=== PATIENT | female | born 1990 | race Caucasian/White ===

== ENCOUNTER 2021-10-27 16:04 | Emergency (ER) | payer SELFPAY ==
--- NOTE | 2021-10-27 | ECG_ITS ---
Test Reason : left sided numbness Blood Pressure : / mmHG Vent. Rate : 118 BPM Atrial Rate : 118 BPM P-R Int : 134 ms QRS Dur : 096 ms QT Int : 338 ms P-R-T Axes : 050 017 064 degrees QTc Int : 473 ms Sinus tachycardia Cannot rule out Inferior infarct , age undetermined Cannot rule out Anterior infarct , age undetermined Abnormal ECG No previous ECGs available Referred By: Cristy Rosado Electronically Signed By:BATOOL MYERS MD
--- NOTE | ~2021-10-27 | XR_ITS ---
EXAMINATION: XR CHEST CLINICAL INFORMATION: Chest pain. COMPARISON: None TECHNIQUE: Frontal view of the chest was obtained. FINDINGS: Support devices: Left-sided central venous port with the tip terminating in the superior vena cava. No significant abnormality is noted involving the heart, lungs, mediastinum, bony thorax or soft tissues. XR/XR chest 1V IMPRESSION: No acute cardiopulmonary process.
--- NOTE | ~2021-10-27 | CT_ITS ---
EXAMINATION: CT HEAD WITHOUT CONTRAST CLINICAL INFORMATION: Prior CVAs, sickle cell, left-sided weakness. COMPARISON: None TECHNIQUE: Contiguous axial imaging was performed from the skull base to vertex without intravenous administration of contrast. Coronal and sagittal reformatted images were obtained. This CT examination was performed using dose optimization techniques as appropriate, variously including the following: *Automated exposure control *Adjustment of mA and/or kV according to patient size (this includes techniques or standardized protocols for targeted exams where dose is matched to indication/reason for exam; i.e. extremities or head) *Use of iterative reconstruction technique DLP: 764 mGy-cm FINDINGS: The cortical sulci are normal. The lateral ventricles are symmetrical. The third and fourth ventricles are in their normal midline position. The basilar and prepontine cisterns are unremarkable. Incidental empty sella with mild enlargement of the sella turcica. There is no acute intra or extracerebral abnormality. There is no mass effect or midline shift. Sections through the bony calvarium are unremarkable. The paranasal sinuses are clear. Hypoaeration of the mastoid air cells bilaterally without other significant abnormality. The bony orbits and orbital contents are unremarkable. CT/CT head/brain wo con IMPRESSION: No acute intracranial pathology.
--- NOTE | ~2021-10-27 | NM_ITS ---
EXAMINATION: NM LUNG IMAGE PERFUSION CLINICAL INFORMATION: Chest pain. COMPARISON: Chest x-ray earlier today TECHNIQUE: Multiple oblique gamma camera images were obtained after the injection of 4 mCi of technetium 99m MAA. Ventilatory images were not performed. FINDINGS: There is mild heterogeneity seen more so in the dependent aspect of both right and left lungs but no discrete persistent segmental or subsegmental defect. Chest x-ray from ceiling demonstrated mild hypoexpansion and a left-sided chest port but no focal airspace disease appreciated. NM/NM pul perfusion IMPRESSION: Mild heterogeneity without associated segmental or subsegmental defect. This likely represents a low probability for pulmonary embolism.
[2021-10-27 16:12] VITALS: BP 134/84; PULSE 118; RESP 20; TEMP 36.4; O2SAT 100; BMI 44.3
--- NOTE | 2021-10-27 17:33 | PC.NURSE ---
PT REFUSING CT SCAN. SHE STATES SHE WOULD LIKE A CT W/CONTRAST. PT WAS EDUCATED ON STROKE R/O IMAGING, SHE THEN REFUSED TO CONTINUE CONVERSATION WITH THIS RN REQUESTING TO SPEAK WITH THE PROVIDER. PROVIDER IS AWARE OF DELAY.
--- NOTE | 2021-10-27 17:34 | ED_ITS ---
HPI - Weakness General Chief complaint: Weakness Stated complaint: Left sided numbness, sickle cell crisis Time Seen by Provider: 10/27/21 16:36 Source: patient Mode of arrival: ambulatory History of Present Illness HPI Narrative: 31-year-old female with a past medical history of AFib, DVT, factor 5 Leiden, HTN, [place], sickle cell anemia, CVA, reportedly on Coumadin, presenting to the ED complaining of a syncopal episode round 430. States had CP prior to syncope with + LOC and head injujry. Also admits woke up with left arm and leg weakness. Reports has been in sickle cell crisis for the past few days with joint pain, and nausea/vomiting with inability to tolerate p.o. x 6-7 days, unable to take any of her medication for that time. Denies fever, cough, recent illness, abdominal pain, dysuria Reports seeks her care in [place], is visiting MD Complaint: focal weakness, numbness and tingling Onset (ago): hour(s) Duration: constant Related Data Home Medications Medication Instructions Recorded Confirmed cyclobenzaprine 10 mg tablet 10 mg PO TID PRN 10/27/21 10/27/21 diazepam 5 mg tablet 5 mg PO QID PRN 10/27/21 10/27/21 diphenhydramine HCl 50 mg capsule 50 mg PO QID PRN 10/27/21 10/27/21 gabapentin 800 mg tablet 800 mg PO TID 10/27/21 10/27/21 hydromorphone 4 mg tablet 4 mg PO Q4H PRN 10/27/21 10/27/21 hydroxyurea 500 mg capsule 500 mg PO DAILY 10/27/21 10/27/21 lisinopril 10 mg tablet 10 mg PO DAILY 10/27/21 10/27/21 melatonin 10 mg tablet 10 mg PO BEDTIME PRN 10/27/21 10/27/21 metoprolol tartrate 25 mg tablet 25 mg PO DAILY 10/27/21 10/27/21 olanzapine 20 mg tablet (Zyprexa) 20 mg PO DAILY 10/27/21 10/27/21 promethazine 50 mg tablet 50 mg PO Q6H PRN 10/27/21 10/27/21 quetiapine 100 mg tablet (Seroquel) 100 mg PO TID 10/27/21 10/27/21 trazodone 100 mg tablet 200 mg PO BEDTIME 10/27/21 10/27/21 warfarin 7.5 mg tablet 7.5 mg PO DAILY 10/27/21 10/27/21 Allergies Allergy/AdvReac Type Severity Reaction Status Date / Time dicyclomine [From Bentyl] Allergy Hives Verified 10/27/21 16:18 haloperidol [From Haldol] Allergy Anaphylaxis Verified 10/27/21 16:18 Iodinated Contrast Media Allergy Hives Verified 10/27/21 16:18 [IV Contrast Dye] ketorolac [From Toradol] Allergy Hives Verified 10/27/21 16:18 metoclopramide [From Reglan] Allergy Hives Verified 10/27/21 16:18 ondansetron [From Zofran] Allergy Hives Verified 10/27/21 16:18 pantoprazole [From Protonix] Allergy Hives Verified 10/27/21 16:18 Review of Systems Review of Systems: Constitutional: No Fever, No Chills, No Night Sweats, No Fatigue, No Malaise ENT/Mouth: No Ear Pain, No Nasal Congestion, No sore throat, No Rhinorrhea, No Swallowing Difficulty Eyes: No Eye Pain, No Swelling, No Redness, No Vision Changes Cardiovascular: + Chest Pain, No SOB, No Edema, No Palpitations Respiratory: No Cough, No Sputum, No Dyspnea Gastrointestinal: + Nausea, + Vomiting, No Diarrhea, No Constipation, No Abdominal pain Genitourinary: No Dysuria, No Urinary Frequency, No Hematuria, No Flank Pain, No Urinary Flow Changes Musculoskeletal: No joint pain, No Myalgias, No Joint Swelling Skin: No Skin Lesions, No rash Neuro: + Weakness, + Numbness, + Paresthesias, + Loss of Consciousness, +syncope, No Dizziness, No Headache Yes all other systems are reviewed and are negative [facility] Past Medical History Attestation statement: The following information was validated with the patient. Medical History A-fib DVT (deep venous thrombosis) Factor 5 Leiden mutation, heterozygous HTN (hypertension) [place] (myocardial infarction) Pancreatic cancer Seizures Sickle cell anemia Stroke Social History Social History Advance Directives: No Advance Directives Information Provided: No Physical Exam Vital Signs: Vital Signs: Last Vital Signs Temp 97.5 F 10/27/21 16:12 Pulse 118 H 10/27/21 16:12 Resp 20 10/27/21 16:12 BP 134/84 10/27/21 16:12 Pulse Ox 100 10/27/21 16:12 BMI result Body Mass Index 44.3 Const: General: cooperative and no acute distress Orientation/consciousness: patient oriented x3 Limitations: no limitations HEENT: Head: Yes normal to inspection and Yes atraumatic Ears: hearing grossly normal bilaterally General nose exam: Normal external nose present Face and sinus: Yes normal facial exam Mouth: Normal oral and palatal mucosa present Throat: Yes posterior oropharynx normal, Yes tonsils normal, Yes uvula midline and No peritonsillar mass Eyes: General: appearance normal, both eyes and all related structures Pupils: Equal, round and reactive pupils present EOM: EOMs intact bilaterally Neck: Neck: Yes normal visual inspection, Yes no lymphadenopathy and Yes no meningeal signs Resp: Effort & Inspection: normal respiratory effort and no respiratory distress Auscultation: clear to auscultation bilaterally, no crackles, no rales, no rhonchi and no wheezes Cardio: Rate: regular rate and tachycardic Heart sounds: S1 normal heart sound present and S2 normal heart sound present GI: Inspection: Yes normal to inspection Palpation (GI): Soft to palpation, nontender, no guarding and not rigid Skin: Rashes: no rashes Wounds: no wounds Neuro: Other: +weakness 4/5 strength to LUE and LLE General: patient oriented x3, tone normal, moves all extremities and no meningeal signs Cranial nerves: Yes Equal, round and reactive pupils present Coordination: [id number] test normal Extrem: General: Yes normal to inspection NIH Stroke Scale Internal: Initial- Upon Arrival Level of Consciousness: Alert Level of Consciousness Questions: Answers both questions correctly Level of Consciousness Commands: Performs both tasks correctly Best Gaze: Normal Visual: No visual loss Facial Palsy: Normal Motor Arm (Right): No drift Motor Arm (Left): Some effort against gravity Motor Leg (Right): No drift Motor Leg (Left): Some effort against gravity Limb Ataxia: Absent Sensory: Normal Best Language: No aphasia Dysarthia: Normal Extinction and Inattention: No abnormality Score: 4 Course Course Course Narrative: -5130--patient refusing to go to head CT until we access her port -patient's story consistently changing every time this caption writer speaks with her, originally was not on any anticoagulation, now telling me she is on Coumadin wh ich she has been noncompliant with x7 days. Patient only concern with accessing port to obtain IV pain medication rather than going for imaging even with her left-sided weakness. Discussed with her at length the importance of obtaining head CT in timely manner, that she is delaying her care -due to patient possibly be in acute sickle cell crisis, IV contrast needs to be cleared by radiologist, and labs need to be obtained prior. IV contrast in sickle cell patient is not recommended as can put patient in to sickle cell crisis if not already in it. Will need radiologist clearance XR chest 1V IMPRESSION: No acute cardiopulmonary process. -pharmacy spoke with patient obtained med recc & called local [facility] ([place]) however reported no record of patient. Per pharmacy patient obtains controlled substances at [facility] in [facility] however they are currently closed & do not open until tomorrow morning, pharmacy will retry tomorrow for med recc -1814--ED care transferred to [facility] pending remaining w/u and dispo per results/anticipated admission MDM - Weakness MDM Narrative Medical decision making narrative: 31-year-old female with a past medical history of AFib, DVT, factor 5 Leiden, HTN, [place], sickle cell anemia, CVA, reportedly on Coumadin, presenting to the ED complaining of a syncopal episode round 430PM. States had CP prior to syncope, admits woke up with left arm and leg weakness. On exam tachycardic, NAD, physical exam as above with appreciable weakness to left arm and leg. Concern for ACS vs CVA vs sickle cell crisis vs metabolic/infectious etiologies vs PE NIHSS= 4 > patient inconsistent and unreliable with history, this caption writer does not feel comfortable pushing tPA Plan: EKG, labs, CXR, head CT, CTA head and neck, UA Differential Diagnosis Differential diagnosis: Likely anemia and dehydration Medical Records Attestation: I reviewed the patient's medical records. Lab Data Attestation: I reviewed the patient's lab results. Result diagrams: 10/27/21 18:14 10/27/21 18:14 Labs: Lab Results 10/27/21 Range/Units 18:14 WBC 8.1 (4.8-10.8) X10*3/uL RBC 3.39 L (4.20-5.50) X10*6/uL Hgb 9.1 L (12.0-16.0) g/dl Hct 29.5 L (37.0-47.0) % MCV 87.0 (80.0-98.0) fL MCH 26.8 L (27.0-33.0) pg MCHC 30.8 L (31.0-35.0) g/dl RDW 13.9 (11.0-16.0) % Plt Count 297 (160-400) X10*3/uL MPV 9.6 (9.4-12.3) fL Immature Gran % (Auto) 0.4 (0.0-0.4) % Neut % (Auto) 75.2 H (45-73) % Lymph % (Auto) 20.1 (20-40) % Runnels % (Auto) 3.7 (2-11) % Eos % (Auto) 0.5 (0-4) % Baso % (Auto) 0.1 (0-2) % Lymph # (Auto) 1.6 (1.2-4.9) X10*3/uL Runnels # (Auto) 0.3 (0.1-1.2) X10*3/uL Eos # (Auto) 0.0 (0.0-0.4) X10*3/uL Baso # (Auto) 0.0 (0.0-0.2) X10*3/uL Abs Immat Gran (auto) 0.03 (0.00-0.03) X10*3/uL Absolute Neuts (auto) 6.1 (2.0-8.3) x10*3/uL Absolute Nucleated RBC 0.000 (0.0-0.012) X10*3/uL Nucleated RBC % (auto) 0.0 (0.0-0.2) /100WBC Absolute Retic 0.054 (0.026-0.095) X10*6/uL Percent Retic 1.6 (0.5-1.8) % Immature Retic Fraction 13.7 (3.0-15.9) % Retic Hgb Equivalent 30.2 (30.0-35.0) pg Discharge Plan Discharge Clinical Impression: Syncope, Sickle cell anemia with crisis, Chest pain, Left-sided weakness Patient Disposition: Still a Patient Prescriptions: No Action cyclobenzaprine 10 mg Tablet 10 mg PO TID PRN (Reason: Spasms) 0RF hydroxyurea 500 mg Capsule 500 mg PO DAILY 0RF diphenhydramine HCl [Benadryl] 50 mg Capsule 50 mg PO QID PRN (Reason: Itching) 0RF warfarin [Coumadin] 7.5 mg Tablet 7.5 mg PO DAILY 0RF quetiapine [Seroquel] 100 mg Tablet 100 mg PO TID 0RF gabapentin 800 mg Tablet 800 mg PO TID 0RF trazodone 100 mg Tablet 200 mg PO BEDTIME 0RF promethazine 50 mg Tablet 50 mg PO Q6H PRN (Reason: Nausea) 0RF lisinopril 10 mg Tablet 10 mg PO DAILY 0RF hydromorphone 4 mg Tablet 4 mg PO Q4H PRN (Reason: Pain) 0RF olanzapine [Zyprexa] 20 mg Tablet 20 mg PO DAILY 0RF diazepam 5 mg Tablet 5 mg PO QID PRN (Reason: Anxiety) 0RF metoprolol tartrate 25 mg Tablet 25 mg PO DAILY 0RF melatonin 10 mg Tablet 10 mg PO BEDTIME PRN (Reason: Sleep) 0RF
[2021-10-27] MEDS: 0.9 % Sodium Chloride 1,000 ML 999 ML IV (18:11)
[2021-10-27] MEDS: diphenhydrAMINE HCL 50 MG/ML VIAL IVPUSH (18:13)
--- NOTE | 2021-10-27 18:15 | PHA.MEDREC ---
Pharmacy Consult ? Medication Reconciliation Pharmacy has completed the medication reconciliation. Pt named complete medication list with specific strength and frequencies, however there is no claim history. Pt claims she gets her medications at a [facility] and provided me with a phone number ([phone]) but when I called the patient could not be found in the system. I confirmed with patient that she does not use any other names or hyphenated last names. Pt also stated that she gets her controls from [facility] and provided me a phone number ([phone]) however the out patient pharmacy is closed and does not open until 9am Tuesday10/28/21. I notified provider of the lack of confirmation for medications, will have someone follow up tomorrow with [facility]. Vanesa Abbott, GuidoD
[2021-10-27 18:19] LABS: MANUAL DIFF FLAG NO
[2021-10-27] MEDS: Morphine Sulfate 2 MG/ML CARTRIDGE IVPUSH (18:21)
[2021-10-27 18:22] LABS: Basophils Percent Auto 0.1 % (0-2); Eosinophils Percent Auto 0.5 % (0-4); Hematocrit 29.5 % (37.0-47.0); Hemoglobin 9.1 g/dl (12.0-16.0); Imm Gran Abs Auto 0.03 X10*3/uL (0.00-0.03); Imm Gran Pct Auto 0.4 % (0.0-0.4); Immature Retic Fraction 13.7 % (3.0-15.9); Lymphocytes Absolute Auto 1.6 X10*3/uL (1.2-4.9); Lymphocytes Percent Auto 20.1 % (20-40); Mean Corpuscular HGB Conc 30.8 g/dl (31.0-35.0); Mean Corpuscular Hemoglobin 26.8 pg (27.0-33.0); Mean Platelet Volume 9.6 fL (9.4-12.3); Monocytes Absolute Auto 0.3 X10*3/uL (0.1-1.2); Monocytes Percent Auto 3.7 % (2-11); Neutrophils Absolute Auto 6.1 x10*3/uL (2.0-8.3); Neutrophils Percent Auto 75.2 % (45-73); Platelet Count 297 X10*3/uL (160-400); Red Blood Count 3.39 X10*6/uL (4.20-5.50); Red Cell Distribution Width 13.9 % (11.0-16.0); Retic HGB Equivalent 30.2 pg (30.0-35.0); Reticulocyte Percent 1.6 % (0.5-1.8); Reticulocytes Absolute 0.054 X10*6/uL (0.026-0.095); White Blood Count 8.1 X10*3/uL (4.8-10.8)
[2021-10-27 18:36] LABS: INTERNATIONAL NORM RATIO 1.1 (0.9-1.1); Prothrombin Time 12.2 SEC (9.9-13.0)
[2021-10-27 18:39] LABS: Partial Thromboplastin Time 32.8 SEC (24.1-38.0)
[2021-10-27 18:45] LABS: Alanine Aminotransferase 29 U/L (0-31); Albumin Level 3.7 g/dL (3.5-5.0); Alkaline Phosphatase 88 U/L (39-117); Anion Gap 12 (12-20); Aspartate Amino Transferase 21 U/L (5-31); Bilirubin Direct < 0.2 mg/dL (0.0-0.5); Bilirubin Total 0.4 mg/dL (0.0-1.0); Blood Urea Nitrogen 10 mg/dL (9-16); Carbon Dioxide 26 mmol/L (22-29); Chloride 104 mmol/L (96-108); Creatinine Clr Calc Pharmacy 152.4; Estimated Glomerular Filt Rate > 60; Glucose Random 94 mg/dL (60-115); Lipase 32 U/L (8-78); Magnesium 1.7 mg/dL (1.6-2.6); Potassium 3.6 mmol/L (3.3-5.1); Sodium 138 mmol/L (135-145); Total Protein 6.5 g/dL (6.5-8.0)
[2021-10-27 18:52] LABS: B Type Natriuretic Peptide < 10 pg/mL (<100); Troponin-I High Sensitivity < 3.5 ng/L (<3.5-17.0)
--- NOTE | 2021-10-27 18:57 | PC.NURSE ---
50 mg Benadryl given per order. Original order 25 mg then cancelled then 50 mg ordered.
[2021-10-27 19:18] VITALS: BP 145/88; PULSE 104; RESP 17; O2SAT 100
[2021-10-27] MEDS: LORazepam 2 MG/ML VIAL 0.5 MG IVPUSH (19:19)
[2021-10-27] MEDS: HYDROmorphone HCl 0.5 MG/0.5 ML SYRINGE IVPUSH (19:19)
--- NOTE | 2021-10-27 21:40 | PC.NURSE ---
Patient refusing med fr4om this RNs best practice protocol. Patient educated on mecdication administration protocols.
[2021-10-27] MEDS: HYDROmorphone HCl 1 MG/ML SYRINGE IVPUSH (22:24)
[2021-10-27 22:35] VITALS: BP 120/81; PULSE 99; RESP 17; TEMP 37; O2SAT 95
--- NOTE | 2021-10-28 | P.EN_ITS ---
Event Note Date of Service: 10/28/21 Event Note: I was asked to evaluate this pt for possible admission. It appears that this 31, yo F presented to the hospital at 4 stating that she had a syncopal episode that lasted 10 mins. pt also reported that she was w her sister when the episode occured and that her sister brought her in. She was also complaining of left sided weaknessin the upper and lower extremity. She initially refused all care and requested pain medication only because she stated that she is going through sickle crisis . When asked to obtain her medical records, pt stated that she lives in [place] and goes to [facility] for medical care. when asked to give the sisters number who witnessed the syncope, pt gave a number that is not in service. She reports history of multiple strokes and heart attacks in the past. When I evaluated the pt , she gave me a different stroy. She stated that she was at her friends house when she got dizzy, had sharp chest pain and passed out. she reported that she passed out for 4-5 mins and wke up with left sided weakness. She reports that she has a histroy of stroke with residual right sided weakness. When i asked about her hematologists, she gave a me a doctor name at [facility]. I asked for his number, pt stated that she does not have it. there is also no record of such Dr ( Dr. Farooq Vásquez, at [facility]) there is no table tender/oncologist by that name at that hospital When asked about the number of her friend so I can get more info about the syncope, pt stated that her friends phone is not working. She initially stated that he friend drove her , then stated that her friend called an uber. pt was wittned to walk to triage room with no difficulty in ambulation, but told ED PA that she came in w wheelchair while she told me she used a cane. She reports a list of meds , when called the pharmacy that she gave the name of, there is no record of the patient. Shes is stated nausea and vomiting but pt has been monitored in ED for 8 hrs with no episodes of nausea or vomiting. Pt is also complaining of severe 10/10 pain but is very calm, with no clinical evidence of distress or signs of pain. Labs reviewed show normal Bili, no elevated LFTs, Vitals have consistenly remained stable throughout her observation in the ED no no evidence of pain. CXR is clear with no evidence of acute chest syndrome, Head CT negative and shows no evidence of previous stroke, V/Q scan negative for PE. due to weight pt does not fit in the MRI machine She states that she is on blood thinner, but the pharmacy that she said she goes to, has no record of her and our pharmacy was unable to find any record of her obtaining or filling any scripts recently Pt was also noted by me to use her left upper extremity with no difficulty or weakness while using her phone. I highly suspect that pt is pain medication seeking at this time, And based on clinical as well as labs and diagnostic findings i genuinely do not believe that she is in sickle cell crisis, or that the left sided weakness is genuine. Pt would not be a candidate for tPA anyways as she initially reported being on warfarin but this cannot be verified. she is also not a candidate for our MRI given her weight. She is too inconsistent. We are unable to verify any of her information. She is making up stories and changing them constantly. she is no no distress clinically or by vital or clinical signs. She was noted to use her left extremities uppr and lower with no evidence of weakness. Based on all the above findings, I dont not see an admission criteria.
--- NOTE | 2021-10-28 00:17 | PC.NURSE ---
Dr. Jorge speaking with pt Pt gave number to person who witnessed pt's episode of weakness: Amanda [phone] This RN called the number and this number unable to take any calls at this time.
--- NOTE | 2021-10-28 01:18 | PC.NURSE ---
Pt dressed herself Pt aware of lyft outside waiting for her Pt ambulated out of room without use of cane with even gait. Pt able to carry bag, belongings and cane out to WR
== END 2021-10-28 01:20 | disposition home or self-care (01) ==
PROVIDERS: Physician Assistant; Emergency Provider Emergency Medicine
DX: D57.00 Hb-SS disease with crisis, unspecified (principal); R29.704 NIHSS score 4; R53.1 Weakness; R55 Syncope and collapse; R06.02 Shortness of breath; I10 Essential (primary) hypertension; R07.89 Other chest pain; I48.91 Unspecified atrial fibrillation; Z79.01 Long term (current) use of anticoagulants; Z79.899 Other long term (current) drug therapy
CPT/HCPCS: 36415; 70450; 71045; 78580; 80048; 80076; 83690; 83735; 83880; 84484; 85025; 85045; 85610; 85730; 93005; 96361; 96374; 96375; 96376; 99284; 99285; A9540; J1170; J1200; J1642; J2060; J2270